=== PATIENT | female | born 1975 | race Caucasian/White ===

== ENCOUNTER 2017-03-20 09:24 | Emergency (ER) | payer BC, OTHER ==
[2017-03-20] MEDS ORDERED: NS 1,000 ML IV ONE ×2 (10:02→11:10)
[2017-03-20] MEDS ORDERED: fentaNYL 100 MCG/2 ML INJ IVP ONE (10:02)
[2017-03-20] MEDS ORDERED: ONDANSETRON 4 MG/2 ML VIAL IVP ONE (10:02)
[2017-03-20] MEDS ORDERED: IOPAMIDOL (ISOVUE-300) 100 ML BTL ONE (10:12)
[2017-03-20 10:21] LABS: % IMMATURE GRANULYOCYTES 0.3 % (0.0-1.1); ABSOLUTE IMMATURE GRANULOCYTES 0.03 10^3/uL (0.00-0.10); ADD DIFF? NO; ADD MORPH? NO; ADD SCAN? NO; ATYPICAL LYMPHOCYTE FLAG 50 (0-99); FRAGMENT RBC FLAG 0 (0-99); HEMATOCRIT 39.9 % (38.0-47.0); HEMOGLOBIN 13.7 g/dL (12.6-16.3); LEFT SHIFT FLG 0 (0-99); LIPEMIA HEMOLYSIS FLAG 90 (0-99); MEAN CELL HEMOGLOBIN 30.2 pg (27.9-34.1); MEAN CELL HEMOGLOBIN CONCENTR. 34.3 g/dL (32.4-36.7); MEAN CELL VOLUME 88.1 fL (81.5-99.8); MEAN PLATELET VOLUME 9.1 fL (8.7-11.7); PLATELET CLUMPS FLAG 10 (0-99); PLATELET COUNT 237 10^3/uL (150-400); RED BLOOD CELL COUNT 4.53 10^6/uL (4.18-5.33); RED CELL DISTRIBUTION WIDTH 12.6 % (11.5-15.2)
[2017-03-20] MEDS ORDERED: ACETAMINOPHEN 500 MG TAB PO ONE (10:23)
[2017-03-20 10:33] LABS: INR 1.1 (0.83-1.16); PROTIME(PATIENT) 13.9 SEC (12.0-15.0)
[2017-03-20 10:34] LABS: ANION GAP 12 mEq/L (8-16); APTT 27.8 SEC (23.0-38.0); BILIRUBIN,TOTAL 1.1 mg/dL (0.1-1.4); CALCIUM 8.6 mg/dL (8.5-10.4); CARBON DIOXIDE 24 mEq/l (22-31); CHLORIDE 102 mEq/L (97-110); CREATININE 0.8 mg/dL (0.6-1.0); GLOMERULAR FILTRATION RATE > 60; GLUCOSE 110 mg/dL (70-100); POTASSIUM 3.6 mEq/L (3.5-5.2); SODIUM 138 mEq/L (134-144)
--- NOTE | 2017-03-20 10:49 | EDPHY ---
H & P Time Seen by Provider: 03/20/17 09:59 HPI/ROS: CHIEF COMPLAINT: Abdominal pain, bloating, fever HISTORY OF PRESENT ILLNESS: 41-year-old female presents emergency department reporting that she developed a "stomach flu ""earlier this week. Patient's symptoms were epigastric right and left upper quadrant discomfort as well as bloating, constipation, diarrhea, and fever. She was nauseous but does not endorse any vomiting. She was ill for 3 days, and had a low-grade fever. She seemed to improve yesterday but woke in the collar packer hours feeling quite ill, vomiting multiple times last night, and developed a recurrent fever. Her was also sick with a stomach flu, last week as was her son. They have both improved. No history of abdominal surgeries. Patient denies a cough, runny nose, back pain, urinary complaints. Has not noticed any bloody diarrhea. No travel outside the [place]. REVIEW OF SYSTEMS: Aside from elements discussed in the HPI, a comprehensive 10-point review of systems was reviewed and is negative. PAST MEDICAL HISTORY: Patient denies. SOCIAL HISTORY: Nonsmoker, occasional alcohol use. VITAL SIGNS Reviewed by me. GENERAL: Well-developed, well-nourished, quite warm to the touch, febrile to 39.0 degrees C, on my examination. HEENT: Atraumatic. Eyes: No icterus, no injection. Mouth: Dry mucous membranes. No erythema or lesions. Neck: supple with no adenopathy. LUNGS: Clear to auscultation bilaterally, no wheezes, rhonchi or rales. CARDIAC: Regular rate and rhythm, no rubs, murmurs or gallops. ABDOMEN: Soft, distended throughout, no focal tenderness to palpation. BACK: No CVA tenderness. EXTREMITIES: No trauma. No edema. Range of motion is normal throughout. NEURO: Alert and oriented, grossly nonfocal. SKIN: hot to the touch, no rash. PSYCHIATRIC: Normal mentation, no agitation. Smoking Status: Never smoked Constitutional: Initial Vital Signs Temperature (C) 37.8 C 03/20/17 09:30 Heart Rate 99 03/20/17 09:30 Respiratory Rate 16 03/20/17 09:30 Blood Pressure 130/86 H 03/20/17 09:30 O2 Sat (%) 95 03/20/17 09:30 O2 Delivery Mode Room Air Allergies/Adverse Reactions: No Known Allergies Allergy (Verified 07/12/15 09:11) Home Medications: Medication Instructions Recorded AZITHROMYCIN [Z-PACK] 250 mg PO DAILY #6 tab 03/20/17 Ondansetron Odt [Zofran Odt 4 mg 4 mg PO Q6 PRN #8 tab 03/20/17 (RX)] oxyCODONE/APAP 5/325 [Percocet 1 tab PO QID PRN #10 tab 03/20/17 5/325 (*)] Medical Decision Making - Diagnostics Imaging Results: CXR: reviewed independently by myself. My impression: normal. Radiology Impression: Mild bronchitis. Dictated By: Harriett Andrews MD CT scan abdomen/pelvis Impression: 1. Follicular cyst right adnexa in the pelvis. 2. No CT evidence of appendicitis, abscess or bowel obstruction. Findings discussed with Emily Silvestre MD at 11:34 hour, 03/20/2017. Dictated By: Luis Harrison MD Imaging: Discussed imaging studies w/ yardage caller Radiologist, I viewed and interpreted images myself ED Course/Re-evaluation: IV was established in the patient received a L of normal saline, 1000 mg of Tylenol, labs, and a CT scan abdomen pelvis was ordered. Laboratory data demonstrates white count of almost 12,000, largely unremarkable electrolytes, normal lipase and LFTs, urinalysis with 10-15 WBC, trace bacteria , 2+ epithelial cells. Negative leukocyte esterase and negative nitrates. CT scan of the abdomen pelvis demonstrates no sign of obstruction, abscess, normal appendix, no bowel wall thickening. Please see Dr. Harrison full report. On re-examination at 11:45 a.m.: Patient reports feeling better. Her abdominal discomfort has started to subside. She has been sleeping. On re- examination of her abdomen in remained soft, mild left lower quadrant discomfort to deep palpation, no guarding or rebound. She does report some epigastric pain earlier this week, without chest pain or shortness of breath. Chest x-ray was ordered. Sepsis Evaluation Note: The patient presents to the ED with potential infection identified as gastroenteritis, colitis, or intra-abdominal infection. The patient did have evidence of SIRS with a temperature greater than 39, heart rate greater than 90 , and white blood cell count of 11,780. Patient did not have evidence of end- organ dysfunction. She has a normal creatinine, normal platelets, normal lactic acid, normal bilirubin, normal PT /INR. Patient was reexamined at 1:00 p.m.: She is tolerating p.o. fluids. Her family is here. She reports her abdominal discomfort is much improved. She does have a headache. She has already received Tylenol as well as fentanyl. Fentanyl cause significant sedation. Patient is comfortable being discharged home. Percocet was given for the patient's residual headache. She has not have any diarrhea while in the emergency department. On re-examination she has a soft abdomen, no guarding or rebound, no tenderness to palpation. Her is here to drive her home. Review of the patient's chest x-ray demonstrates peribronchial fullness. It is possible that some of her upper abdominal discomfort and discomfort in the right and left upper quadrants was related to a pulmonary source. She is a nonsmoker. There is no pneumonia. She was given a prescription of azithromycin to take for bronchitis findings on the x-ray. Patient understands that no definitive cause of her symptoms has been identified. This may be a gastroenteritis with fever, vomiting, and intermittent diarrhea. Her epigastric and upper quadrant discomfort may have been related to mild bronchitis. There is no evidence on CAT scan of significant surgical or intra-abdominal processes. Laboratory evaluation is largely unremarkable including a lipase and liver function tests. Patient will be discharged home with Nette and Jay. She understands she needs to follow up with Dr. Harris on Wednesday without fail for re-examination. She understands that if her symptoms are not improving as expected she should return to the emergency department sooner. Instructions regarding bland diet were also discussed with the patient. Differential Diagnosis: After obtaining the patient's history and performing an examination, differential diagnosis considered included but was not limited to appendicitis, cholecystitis, gastritis, pancreatitis, kidney stones, urinary tract infections , bowel obstruction, abscess, diverticulitis and other causes. - Data Points Laboratory Results: Laboratory Results 03/20/17 10:15 03/20/17 10:15 Medications Given: Discontinued Medications Acetaminophen (Tylenol) 1,000 mg PO EDNOW ONE Stop: 03/20/17 10:24 Last Admin: 03/20/17 10:31 Dose: 1,000 mg Dicyclomine HCl (Bentyl) 20 mg PO EDNOW ONE Stop: 03/20/17 11:56 Last Admin: 03/20/17 12:00 Dose: 20 mg Fentanyl (Sublimaze) 50 mcg IVP EDNOW ONE Stop: 03/20/17 10:03 Last Admin: 03/20/17 10:13 Dose: 50 mcg Sodium Chloride (Ns) 1,000 mls @ 0 mls/hr IV ONCE ONE; Wide Open PRN Reason: Protocol Stop: 03/20/17 10:03 Last Admin: 03/20/17 10:12 Dose: 1,000 mls Sodium Chloride (Ns) 1,000 mls @ 0 mls/hr IV ONCE ONE PRN Reason: Wide Open Stop: 03/20/17 11:11 Last Admin: 03/20/17 11:11 Dose: 1,000 mls Ketorolac Tromethamine (Toradol) 15 mg IVP EDNOW ONE Stop: 03/20/17 11:14 Last Admin: 03/20/17 11:20 Dose: 15 mg Ondansetron HCl (Zofran) 4 mg IVP EDNOW ONE Stop: 03/20/17 10:03 Last Admin: 03/20/17 10:13 Dose: 4 mg Ondansetron HCl (Zofran Odt) 4 mg PO EDNOW ONE Stop: 03/20/17 12:57 Last Admin: 03/20/17 13:06 Dose: 4 mg Oxycodone/Acetaminophen (Percocet 5/325) 1 tab PO EDNOW ONE Stop: 03/20/17 12:57 Last Admin: 03/20/17 13:06 Dose: 1 tab Departure - Departure Disposition: Home, Routine, Self-Care Clinical Impression: Bronchitis Abdominal pain Qualifiers: Abdominal location: generalized Qualified Code(s): R10.84 - Generalized abdominal pain Fever Qualifiers: Fever type: unspecified Qualified Code(s): R50.9 - Fever, unspecified Vomiting Qualifiers: Vomiting type: unspecified Vomiting Intractability: non-intractable Nausea presence: with nausea Qualified Code(s): R11.2 - Nausea with vomiting, unspecified Condition: Good Instructions: Fever in Adults (ED), Acute Nausea and Vomiting (ED), Acute Abdominal Pain (ED) Additional Instructions: No definitive cause of her symptoms have been identified. Your evaluation emergency department demonstrates largely unremarkable laboratory values, no signs of pancreatitis, no signs of appendicitis, no bowel obstruction, or intra- abdominal abscess. Your symptoms may be related to a viral infection. I encourage you to start with clear liquids and advance your diet as tolerated. For your vomiting, pain, distention, bloating, I suggested you start with a bland diet and advance as tolerated. This means start with clear liquids such as water, Gatorade, juice, flat non- caffeinated soda. If you tolerate clear liquids, then you may add bland foods such as bananas, rice, or toast. If you do not have any worsening of your symptoms, you may begin to resume a regular diet. Please take Tylenol or ibuprofen as needed to control your fever. Follow up with Dr. Harris without fail on Wednesday. Return to the emergency department or seek care urgently if you continue to have high fevers, recurrent bouts of vomiting, increasing abdominal pain, increasing distention, or other concerns. Okay to take Percocet as needed for headache pain and mild abdominal pain. Okay to take Zofran as needed for mild vomiting. If your vomiting despite the Zofran, or have severe abdominal pain or severe headache pain despite the Percocet, please return to the emergency department or seek care urgently. Referrals: Pamela Harris MD [Primary Care Provider] - As per Instructions Prescriptions: AZITHROMYCIN [Z-PACK] 250 mg PO DAILY #6 tab Ondansetron Odt [Zofran Odt 4 mg (RX)] 4 mg PO Q6 PRN #8 tab PRN Reason: Nausea oxyCODONE/APAP 5/325 [Percocet 5/325 (*)] 1 tab PO QID PRN #10 tab PRN Reason: Pain
[2017-03-20] MEDS ORDERED: KETOROLAC 15 MG/1 ML SDV IVP ONE (11:13)
[2017-03-20 11:21] VITALS: RESP 18
[2017-03-20 11:21] LABS: COLOR YELLOW; LEUKOCYTE ESTERASE,URINE NEGATIVE (NEGATIVE); NITRITE,URINE NEGATIVE (NEGATIVE)
[2017-03-20 11:27] LABS: MUCUS 2+ /lpf (NONE-1+)
[2017-03-20 11:28] LABS: BACTERIA TRACE /hpf (NONE SEEN)
[2017-03-20 11:28] LABS: ALBUMIN 4.1 g/dL (3.5-5.0); BILIRUBIN,TOTAL 1.1 mg/dL (0.1-1.4); BILIRUBIN-CONJUGATED 0.4 mg/dL (0.0-0.5); BILIRUBIN-UNCONJUGATED 0.7 mg/dL (0.0-1.1)
[2017-03-20] MEDS ORDERED: DICYCLOMINE 10 MG CAP PO ONE (11:55)
[2017-03-20 12:42] VITALS: TEMP 99
[2017-03-20] MEDS ORDERED: ONDANSETRON DISINTEGRATING 4 MG TAB PO ONE (12:56)
[2017-03-20] MEDS ORDERED: OXYCODONE/APAP 5/325 TAB PO ONE (12:56)
[2017-03-20 13:18] VITALS: BP 124/67; PULSE 82; O2SAT 92
== END 2017-03-20 13:17 | disposition home or self-care (01) ==
LOC: CED 09:24
DX: J20.9 Acute bronchitis, unspecified (principal); R10.84 Generalized abdominal pain; R11.2 Nausea with vomiting, unspecified; E86.9 Volume depletion, unspecified
CPT/HCPCS: 71020-PO; 74177-PO; 80048-PO; 80076-PO; 81003-PO; 81015-PO; 82247-PO; 83605-PO; 83690-PO; 84703-PO; 85025-PO; 85610-PO; 85730-PO; 96374; J1885; J2405; J3010; Q9967